=== PATIENT | female | born 1985 | race Caucasian/White ===

== ENCOUNTER 2023-10-08 20:26 | Emergency (ER) | payer OTHER ==
[~2023-10-08] VITALS: Ht 165.1 cm; Wt 93.2 kg
[~2023-10-08 20:26] MED LIST: ATOR10TA70 PO; SERT-434 PO; vitamin c; zinc
[2023-10-08 20:32] VITALS: BP 127/80; PULSE 98; RESP 16; TEMP 97.8; O2SAT 100
[2023-10-08] MEDS: povidone-iodine 120ml topical solution TP ONE (21:46)
[2023-10-08] MEDS: LIDOcaine 1% 30ml preserv. free vial IJ STA (21:46)
== END 2023-10-08 22:04 | disposition home or self-care (01) ==
LOC: ER 20:27
DX: S61.412A Laceration without foreign body of left hand, initial encounter (principal); Z88.1 Allergy status to other antibiotic agents; W26.8XXA Contact with other sharp object(s), not elsewhere classified, initial encounter; Y93.89 Activity, other specified; Y92.89 Other specified places as the place of occurrence of the external cause; Y99.8 Other external cause status
CPT/HCPCS: 12001; 73130; 99283; A6222; A6258